=== PATIENT | male | born 1995 | race Caucasian/White ===

== ENCOUNTER 2019-08-27 15:37 | Emergency (ER) | payer OTHER, SELFPAY ==
--- NOTE | ~2019-08-27 | CT_ITS ---
EXAMINATION: CT brain wo con INDICATION: Seizure COMPARISON: 04/18/2017 TECHNIQUE: Standard unenhanced head CT. The dose-length product (DLP) was 605.33 mGy-cm. The mA was a djusted according to patient size. Iterative reconstruction technique was employed. FINDINGS: There is no intracranial hemorrhage, acute infarction, or abnormal mass lesion. The ventric les are normal. There is no abnormal mass effect or midline shift. The hernandez-white matter differentiat ion is normal. The basal cisterns are patent. The orbits are normal. The paranasal sinuses, mastoids and calvarium are normal. IMPRESSION: 1. No acute intracranial abnormality. Reviewed, dictated and finalized at location A.
[2019-08-27 15:45] VITALS: BP 130/81; PULSE 75; RESP 16; TEMP 36.7; O2SAT 98
--- NOTE | 2019-08-27 16:07 | ECG_ITS ---
Measurements Intervals [place] Rate: 71 P: 59 DC: 164 QRS: 22 QRSD: 105 T: 26 QT: 366 QTc: 399 Interpretive Statements SINUS RHYTHM WITH SINUS ARRHYTHMIA VOLTAGE CRITERIA FOR LVH MINIMAL Q WAVES- HIGH LATERAL LEADS BASELINE ARTIFACT- II, III, AVR, AVL,A VF, V3 BORDERLINE ECG Electronically Signed On 08-27-2019 16:40:28 CDT by Hayden Reynolds D.O.
[2019-08-27 16:19] LABS: Hematocrit 46.8 % (40.0-54.0); Hemoglobin 16.1 g/dL (14.0-18.0); Mean Corpuscular HGB Conc 34.4 g/dL (32.0-36.0); Mean Corpuscular Hemoglobin 30.6 pg (27.0-31.0); Mean Corpuscular Volume 88.8 fL (78.0-102.0); Mean Platelet Volume 9.7 fl (8.7-11.0); Platelet Count Result 276 K/mm3 (150-420); Red Blood Count 5.27 M/mm3 (4.70-6.10); Red Cell Distribution Width 11.7 % (11.6-14.4)
[2019-08-27 16:34] VITALS: PULSE 75
[2019-08-27 16:38] LABS: Alanine Aminotransferase 19 U/L (16-63); Albumin Level 4.3 g/dL (3.4-5.0); Alkaline Phosphatase 67 U/L (46-116); Anion Gap 16.4 mmol/L (7-16); Aspartate Amino Transferase 20 U/L (15-37); Bilirubin,Total 0.6 mg/dL (0.00-1.00); Blood Urea Nitrogen 15 mg/dL (7-18); Calcium 10.3 mg/dL (8.5-10.1); Carbon Dioxide 26 mmol/L (21-32); Chloride 105 mmol/L (98-108); Estimated CRCL calculation 47 ml/min; Estimated Glomerular Filt Rate 43; Glucose 95 mg/dL (70-99); Osmolality Calculated 298 mOsm/kg (285-295); Potassium 3.4 mmol/L (3.5-5.1); Sodium 144 mmol/L (136-145); Total Protein 7.9 g/dL (6.4-8.2)
[2019-08-27 16:40] LABS: Creatine Kinase 184 U/L (39-308)
--- NOTE | 2019-08-27 16:48 | ED.SEIZURE ---
HPI - Seizure General Chief Complaint: Seizure Stated Complaint: AMB Source: patient and EMS Mode of arrival: EMS Limitations: no limitations History of Present Illness HPI Narrative: This is a 24-year-old male with a history of seizures follows with neurology and currently on vimpat, Keppra and divalproex, while at work had a seizure event lasting few seconds was witnessed with some no bowel or bladder dysfunction no tongue biting, currently seizure-free was brought in by EMS, with currently no headache no nausea vomiting no blurry vision no chest pain no shortness of breath no abdominal pain no dysuria. Patient has infrequent seizures last 1 approximately 1 year ago and does follow with Neurology. patient is a social drinker but last drink of alcohol was approximately 3 to 4 days ago uses cannabis but has not had any use in the last 2 to weeks. complaint: seizure Onset (ago): hour(s) Description of Episode: loss of consciousness -: second(s) Witnessed: Yes - by Bystander Trauma: No Seizure History: Yes Place: work Possible Precipitating Event: none Associated symptoms: denies other symptoms and weakness Treatments prior to arrival: none Related Data Home Medications Medication Instructions Recorded Confirmed divalproex 250 mg PO BID 01/02/19 08/27/19 lacosamide [Vimpat] 200 mg PO BID 01/02/19 08/27/19 levetiracetam 2,000 mg PO BID 01/02/19 08/27/19 Allergies Allergy/AdvReac Type Severity Reaction Status Date / Time No Known Allergies Allergy Verified 08/27/19 16:11 Review of Systems Review of Systems: All systems reviewed & are unremarkable except as noted in HPI and below PMFSH Past Medical History Medical History Petit mal epilepsy Exam Const: General: no acute distress and alert Orientation/consciousness: patient oriented x3 HENMT: Head: normal to inspection Eyes: Pupils: Equal, round and reactive pupils present Neck: Neck: normal visual inspection Chest: Chest palpation & inspection: normal inspection of the chest Resp: Effort & Inspection: normal respiratory effort Cardio: Rate: regular rate Rhythm: regular rhythm GI: Auscultation: normal bowel sounds : Testes: Testes normal Back/Spine/Pelvis: Back: no CVA tenderness Skin: General skin exam: normal color Rashes: no rashes Neuro: General: patient oriented x3, moves all extremities and no meningeal signs Extrem: General: normal to inspection and no pedal edema Psych: Mental Status: mental status grossly normal Affect: normal affect Thought content: Yes Normal thought content present Course Course Emergency Course: Patient resting comfortably, no current seizure activity did receive 1 mg IV Ativan and IV fluids and currently doing well. Vital Signs Vital signs: Vital Signs Temperature 36.7 C 08/27/19 15:45 Pulse Rate 75 08/27/19 15:45 Respiratory Rate 16 08/27/19 15:45 Blood Pressure 130/81 08/27/19 15:45 Pulse Oximetry 98 08/27/19 15:45 Temperature 36.7 C 08/27/19 15:45 Pulse Rate 75 08/27/19 15:45 Respiratory Rate 16 08/27/19 15:45 Blood Pressure 130/81 08/27/19 15:45 Pulse Oximetry 98 08/27/19 15:45 MDM - Seizure Lab Data Attestation: I reviewed the patient's lab results. Result diagrams: 08/27/19 16:11 08/27/19 16:11 Labs: Lab Results 08/27/19 08/27/19 08/27/19 Range/Units 16:11 16:11 16:11 WBC 12.0 H (4.8-10.8) K/mm3 RBC 5.27 (4.70-6.10) M/mm3 Hgb 16.1 (14.0-18.0) g/dL Hct 46.8 (40.0-54.0) % MCV 88.8 (78.0-102.0) fL MCH 30.6 (27.0-31.0) pg MCHC 34.4 (32.0-36.0) g/dL RDW 11.7 (11.6-14.4) % Plt Count 276 (150-420) K/mm3 MPV 9.7 (8.7-11.0) fl Sodium 144 (136-145) mmol/L Potassium 3.4 L (3.5-5.1) mmol/L Chloride 105 (98-108) mmol/L Carbon Dioxide 26 (21-32) mmol/L Anion Gap 16.4 H (7-16) mmol/L
[2019-08-27 17:09] LABS: Appearance Urine Clear (Clear); Bilirubin Urine 1+ (Negative); Color Urine Amber (Yellow); Glucose Urine UA Negative (Negative); Ketones Urine Trace (Negative); Leukocyte Esterase Ur Negative (Negative); Nitrate Urine Negative (Negative); Protein Urine 2+ (Negative); Specific Grav Ur >= 1.030 (1.010-1.020); pH Urine 6.5 (5.0-8.0)
[2019-08-27 17:12] LABS: Add Urine Microscopic? YES; Blood Urine Trace-Intact (Negative); RBC Urine 0-2 /hpf (0-2); WBC Urine None seen /hpf (0-3)
[2019-08-27 17:13] LABS: Bacteria Urine Trace /hpf; Mucus Urine Moderate /lpf; Squamous Epithelial Cell Urine Few /hpf (Few)
[2019-08-27 17:45] VITALS: BP 128/74; PULSE 68; RESP 16; O2SAT 98
== END 2019-08-27 17:45 | disposition home or self-care (01) ==
PROVIDERS: Emergency Provider Emergency Medicine
DX: G40.409 Other generalized epilepsy and epileptic syndromes, not intractable, without status epilepticus (principal)
CPT/HCPCS: 36415; 70450; 80053; 81001; 82550; 85027; 93005; 96374; 99283; 99284; J2060

== ENCOUNTER 2021-12-18 17:38 | Emergency (ER) | payer OTHER, SELFPAY ==
[2021-12-18] VITALS (26 sets, daily range): BP systolic 106–138; BP diastolic 57–104; PULSE 61–108; RESP 12–26; TEMP 36.6; O2SAT 93–100
--- NOTE | ~2021-12-18 | XR_ITS ---
EXAMINATION: XR chest 1V DATE: 12/18/2021 18:49 INDICATION: Shortness of breath. TECHNIQUE: A single frontal view of the chest was obtained on 2 radiographs. COMPARISON: CT abdomen and pelvis 01/02/2019 FINDINGS: The chest demonstrates clear lungs without pneumonia, pleural effusion, or pneumothorax. Th e heart size is normal. IMPRESSION: 1. No acute cardiopulmonary disease. Reviewed, dictated and finalized at location A. LRY FACER
--- NOTE | ~2021-12-18 | CT_ITS ---
EXAMINATION: CTA chest PE protocol DATE: 12/18/2021 20:18 INDICATION: Shortness of breath. TECHNIQUE: Computed tomography angiography (CTA) of the chest was performed with 100 mL Omnipaque-350 intravenous contrast timed to evaluate the pulmonary arteries. Coronal maximum intensity projection 3D-reconstructions were created by the technologist. Automated exposure control and iterative reconst ruction technique were employed. The dose-length product was 396.17 mGy-cm. COMPARISON: None. FINDINGS: There is minimal atelectasis bilaterally. No pleural effusion. The heart size is normal. No pericardial effusion. There is no pulmonary embolus. There is mild atrophy of left kidney. There is mild chronic anterior wedging of multiple vertebral bodies. There is dextroscoliosis of upper thoraci c spine and levoscoliosis of lower thoracic spine. 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 IMPRESSION: 1. No pulmonary embolus. Reviewed, dictated and finalized at location A. E KID BUFFER IMPRESSION: 1. No pulmonary embolus.
--- NOTE | ~2021-12-18 | CT_ITS ---
EXAMINATION: CT brain wo con DATE: 12/18/2021 18:49 INDICATION: Tremors. History of seizures. TECHNIQUE: Computed tomography (CT) of the head was performed without intravenous contrast. The mA wa s adjusted according to patient size. Iterative reconstruction technique was employed. Exam dose: 52 9.67 mGy-cm total exam DLP. COMPARISON: 08/27/2019 CT brain 04/18/2017 CT head FINDINGS: Examination is mildly limited by motion artifact. No intracranial mass lesion or hemorrhage or cerebrovascular accident. No midline shift or mass effect. Normal ventricular size. No subdural or epidural hematoma. No fracture or bone destruction of the cranial vault. Included paranasal sinuses and mastoid air cell s are normally developed and aerated. IMPRESSION: No significant abnormality Reviewed, dictated and finalized at Location A. Reviewed, dictated and finalized at location A. SION FIELD INSPECTOR IMPRESSION: No significant abnormality
--- NOTE | 2021-12-18 18:04 | ECG_ITS ---
Measurements Intervals [place] Rate: 90 P: 55 OR: 151 QRS: 17 QRSD: 101 T: 54 QT: 355 QTc: 436 Interpretive Statements SINUS RHYTHM MINIMAL Q WAVES- HIGH LATERAL LEADS BASELINE ARTIFACT- I, II, III, AVR, AVL, AVF BORDERLINE ECG COMPARED TO ECG 08/27/2019 16:16:04 NO SIGNIFICANT CHANGES Electronically Signed On 12-19-2021 7:04:37 RUBBER STAMPS AND DIES SUPERVISOR by Hayden Reynolds D.O.
[2021-12-18 18:19] LABS: Basophils Absolute Auto 0.03 K/mm3 (0.00-0.10); Basophils Percent Auto 0.2 % (0.0-1.0); Eosinophils Absolute Auto 0.04 K/mm3 (0.02-0.50); Eosinophils Percent Auto 0.3 % (1.0-6.0); Hematocrit 43.2 % (40.0-54.0); Hemoglobin 14.8 g/dL (14.0-18.0); Immature Granulocyte Absolute 0.04 K/mm3 (0.00-0.00); Immature Granulocyte Percent A 0.3 % (0.0-0.0); Lymphocytes Percent Auto 15.2 % (18.0-42.0); Mean Corpuscular HGB Conc 34.3 g/dL (32.0-36.0); Mean Corpuscular Volume 90.6 fL (78.0-102.0); Mean Platelet Volume 9.3 fl (8.7-11.0); Monocytes Absolute Auto 0.79 K/mm3 (0.10-0.90); Monocytes Percent Auto 5.7 % (2.0-11.0); Neutrophils Absolute Auto 10.9 K/mm3 (1.7-7.2); Neutrophils Percent Auto 78.3 % (50.0-70.0); Platelet Count Result 250 K/mm3 (150-420); Red Blood Count 4.77 M/mm3 (4.70-6.10); Red Cell Distribution Width 12.1 % (11.6-14.4); White Blood Count 13.9 K/mm3 (4.8-10.8)
[2021-12-18 18:37] LABS: Alanine Aminotransferase 14 U/L (16-63); Albumin Level 3.9 g/dL (3.4-5.0); Alkaline Phosphatase 62 U/L (46-116); Anion Gap 13 mmol/L (8-16); Aspartate Amino Transferase 15 U/L (15-37); Bilirubin,Total 0.6 mg/dL (0.00-1.00); Blood Urea Nitrogen 24 mg/dL (7-18); Calcium 9.4 mg/dL (8.5-10.1); Carbon Dioxide 24 mmol/L (21-32); Chloride 102 mmol/L (98-108); Estimated CRCL calculation 48 ml/min; Estimated Glomerular Filt Rate 40; Glucose 89 mg/dL (70-99); Lactic Acid Reflex 1.1 mmol/L (0.4-2.0); Magnesium 1.6 mg/dL (1.8-2.4); Osmolality Calculated 291 mOsm/kg (285-295); Potassium 3.5 mmol/L (3.5-5.1); Sodium 139 mmol/L (136-145); Total Protein 7.5 g/dL (6.4-8.2)
[2021-12-18 18:44] LABS: Ethanol < 3 mg/dL (0-6)
[2021-12-18] MEDS: SODIUM CHLORIDE 0.9% IV 1,000 ML 999 ML IV CONT ×2 (18:45→19:44)
--- NOTE | 2021-12-18 19:02 | PC.NURSE ---
PT HAS RETURNED FROM CT, FATHER IS IN THE CAR. PT STATES I JUST WANT TO MAKE SURE I AM NOT OVERDOSING. PT STATES THE LAST TIME HE USED METH WAS 2 WEEKS AGO. PT IS AWAITING RESULTS AT THIS TIME. IVF INFUSING ORDERED WITHOUT DIFFICULTY. WILL CONTINUE TO MONITOR.
--- NOTE | 2021-12-18 19:25 | ED.GENADULT ---
HPI - General Adult General Chief complaint: Anxiety Stated complaint: anxiety attack Time Seen by Provider: 12/18/21 17:40 Source: patient and RN notes reviewed Mode of arrival: ambulatory Limitations: no limitations History of Present Illness MD complaint: mild chest pain and heart palpitations. Onset (ago): hour(s) (6) Location: chest Radiation: non-radiation Severity: mild Severity scale (1-10): 3 Quality: aching Pain Consistency: constant Relieving factors: none Exacerbating factors: none Associated symptoms: denies other symptoms Related Data Home Medications Medication Instructions Recorded Confirmed divalproex 500 mg tablet,delayed 250 mg PO BID 01/02/19 12/18/21 release lacosamide 200 mg tablet (Vimpat) 200 mg PO BID 01/02/19 12/18/21 levetiracetam 1,000 mg tablet 2,000 mg PO USEASDIRECTD 01/02/19 12/18/21 Allergies Allergy/AdvReac Type Severity Reaction Status Date / Time No Known Allergies Allergy Verified 12/18/21 18:04 Review of Systems Review of Systems: All systems reviewed & are unremarkable except as noted in HPI and below Constitutional: Constitutional: Reports no additional constitutional complaints Eyes: Eyes: Reports no additional eye complaints ENT: Reports system reviewed and no additional complaints, except as documented Cardiovascular: Cardiovascular: Reports no additional cardiovascular complaints, Reports chest pain and Reports rapid heart rate Respiratory: Respiratory: Reports no additional respiratory complaints Gastrointestinal: Gastrointestinal: Reports no additional gastrointestinal complaints Musculoskeletal: Musculoskeletal: Reports no additional musculoskeletal complaints Integumentary/Breasts: Skin/Breast: Reports system reviewed and no additional complaints, except as docu Neurologic: Reports system reviewed and no additional complaints, except as documented Psychiatric: Psychiatric: Reports no additional psychiatric complaints Endocrine: Endocrine: Reports no additional endocrine complaints Hematologic/Lymphatic: Hematologic/Lymphatic: Reports no additional hematologic/lymphatic complaints Allergic/Immunologic: Allergic/Immunologic: Reports no additional allergic/immunologic complaints PMFSH Past Medical History Medical History (Updated 12/25/21 @ 11:08 by Mary Ellen Rock MD) Asthma Hypomagnesemia Petit mal epilepsy Social History Social History Substance use type: marijuana and amphetamines Exam Const: General: healthy appearing, no acute distress and well nourished Nutritional Appearance: well nourished Orientation/consciousness: patient oriented x3 Limitations: no limitations HENMT: Head: normal to inspection Ears: external ears normal, TM's normal bilaterally and EAC's normal Face/Nose/Sinus: Normal external nose present, Normal nares present, normal facial exam and sinuses nontender Face and sinus: normal facial exam and sinuses nontender Mouth: Yes Normal oral and palatal mucosa present and Yes moist mucous membranes Teeth and gingiva: dentition normal Throat: posterior oropharynx normal Eyes: Conjunctivae: conjunctivae normal Pupils: Equal, round and reactive pupils present EOM: EOMs intact bilaterally Neck: Neck: normal visual inspection, no lymphadenopathy and no meningeal signs Chest: Other: chest pain, Resp: Effort & Inspection: normal respiratory effort Auscultation: clear to auscultation bilaterally, rhonchi and wheezes Cardio: Rate: tachycardic Rhythm: regular rhythm GI: GI Palp: Yes Soft to palpation and No Tenderness to palpation present (GI) Auscultation: normal bowel sounds : General: Yes bladder normal to palpation and Yes no CVA tenderness Back/Spine/Pelvis: Back: no CVA tenderness Skin: General skin exam: normal color Rashes: no rashes Wounds: no wounds Neuro: General: patient oriented x3, moves all extremities, no meningeal signs, no f
--- NOTE | 2021-12-18 19:34 | ECG_ITS ---
Measurements Intervals [place] Rate: 65 P: 37 VA: 153 QRS: 20 QRSD: 101 T: 20 QT: 403 QTc: 420 Interpretive Statements SINUS RHYTHM POSSIBLE LEFT ATRIAL ENLARGEMENT MINIMAL Q WAVES- HIGH LATERAL LEADS BASELINE ARTIFACT- I, II, III, V3, V5 BORDERLINE ECG COMPARED TO ECG 12/18/2021 18:52:50 NO SIGNIFICANT CHANGES Electronically Signed On 12-19-2021 7:06:22 NETWORK OPERATIONS LEAD by Hayden Reynolds D.O.
[2021-12-18] MEDS: MAGNESIUM OXIDE 400 MG TABLET PO (19:41)
[2021-12-18] MEDS: methylPREDNISolone SOD SUCC 125 MG VIAL IV PUSH (19:44)
--- NOTE | 2021-12-18 19:47 | PC.NURSE ---
pt calls out reporting something is not right. pt is anxious, diaphoretic, hyperventilating. coached with breathing, however pt reports no change in the feeling. pt is tearful. erp is notified, medication and fluids given as ordered. ERP declines any anxiety medication at this tme. pt reports sob and difficulty breathing with a feeling of something just is not right. ERP is aware, no orders at this time. will continue to monitor.
[2021-12-18 19:51] LABS: Base Excess ABG 0.5 mmol/L (0-2); HCO3 ABG 18.7 mmol/L (23-29); PO2 ABG 69.6 mmHg (80-90); pH ABG 7.63 (7.35-7.45)
[2021-12-18 20:01] LABS: PCO2 ABG 18.1 mmHg (35-45)
[2021-12-18 20:02] LABS: Device ROOM AIR; Modified Allen's Test Pass; Site Drawn LEFT RADIAL
[2021-12-18] MEDS: IPRATROPIUM 0.5 MG/ALBUTEROL SULFATE 2.5 MG AMPUL.NEB 3 ML INHALATION (20:10)
[2021-12-18 20:12] LABS: Oxygen Saturation ABG 96.1 % (95-97); Oxyhemoglobin 94.9 % (94-100); Total Hemoglobin 15.8 g/dL (12.0-18.0)
[2021-12-18 20:13] LABS: Oxygen Content ABG 21.1 %vol (16.0-22.0)
--- NOTE | 2021-12-18 20:38 | PC.NURSE ---
PT RETURNED FROM CT, REPORTS HE IS FEELING MUCH BETTER, SKIN W-D-P. NAD NOTED. VSS PER MONITOR. WILL CONTINUE TO MONITOR. FATHER AT BEDSIDE.
--- NOTE | 2021-12-18 21:38 | PC.NURSE ---
PT IS SLEEPING IN EXAM ROOM WITH FATHER AT BEDSIDE. PT DECLINES ADMISSION. PT REPORTS HE WILL RETURN IF SX RETURN. FATHER VERBALIZED UNDERSTANDING OF PT REQUEST AND TO BRING PT BACK IF SX RETURN. ERP IS NOTIFIED.
== END 2021-12-18 21:55 | disposition home or self-care (01) ==
PROVIDERS: Emergency Provider Emergency Medicine
DX: E83.42 Hypomagnesemia (principal); T67.2XXA Heat cramp, initial encounter; J45.909 Unspecified asthma, uncomplicated
CPT/HCPCS: 36415; 36600; 70450; 71045; 71275; 80053; 80307; 82805; 83605; 83735; 84484; 85025; 93005; 94640; 96361; 96374; 99284; A9270; J2930; J7030; Q9967

== ENCOUNTER 2022-07-06 19:21 | Observation (INO) | payer SELFPAY ==
[2022-07-06] VITALS (13 sets, daily range): BP systolic 124–136; BP diastolic 74–86; PULSE 78–118; RESP 16–30; TEMP 36.4–37.1; O2SAT 96–100; BMI 23.1
--- NOTE | ~2022-07-06 | XR_ITS ---
EXAMINATION: XR chest 1V portable Exam Date/Time: 07/06/2022 20:25 CDT HISTORY: leukocytosis. evaluate for pneumonia. Comparison: 12/18/2021. RESULT: Lines, tubes, and devices: None. Lungs and pleura: Clear. Cardiomediastinal silhouette: Stable. Other: No acute osseous or upper abdominal finding. IMPRESSION: No acute cardiopulmonary process. Reviewed, dictated and finalized at location K.
--- NOTE | 2022-07-06 19:22 | ED.GENADULT ---
HPI - General Adult General Chief complaint: Seizure Stated complaint: Seizure Time Seen by Provider: 07/06/22 19:22 History of Present Illness HPI narrative: The patient is a 26-year-old male with a long history of seizure disorder, for several years. He is on Vimpat, Keppra, and Depakote antiepileptic medications. He has been taking his medications and has not missed doses, for at least several weeks per his report. The patient was drinking alcohol last night, and uses marijuana. He had one seizure yesterday, and two more seizures today. He did not bite his lips/tongue. He did lose control of his bladder and bowels. He did not strike his head. he denies any headache. Did have nausea and vomiting earlier but not now. Denies any motor sensory deficits. EMS was notified, IV access was established and IV fluids were given due to sinus tachycardia on the monitor. per EMS, he was postictal initially, and then had return of his normal mental status during transport here. He was nauseated so Zofran was given. He was transported here for further management. He denies any other complaints. No photophobia or blurred vision. No neck pain or back pain. No arm or leg pain. No chest pain or abdominal pain. No UTI or URI symptoms. Denies drug use. Related Data Home Medications Medication Instructions Recorded Confirmed divalproex 500 mg tablet,delayed 250 mg PO BID 01/02/19 07/06/22 release lacosamide 200 mg tablet (Vimpat) 200 mg PO BID 01/02/19 07/06/22 levetiracetam 1,000 mg tablet 2,000 mg PO USEASDIRECTD 01/02/19 07/06/22 Allergies Allergy/AdvReac Type Severity Reaction Status Date / Time No Known Allergies Allergy Verified 12/18/21 18:04 Review of Systems Review of Systems: All systems reviewed & are unremarkable except as noted in HPI and below Constitutional: Constitutional: Denies chills, Denies excessive sweating, Denies fatigue, Denies fever(s), Denies headache(s) and Denies weakness Eyes: Eyes: Denies change in vision and Denies photophobia ENT: Denies dysphagia, Denies dizziness, Denies headache(s), Denies lip swelling, Denies nasal congestion, Denies sore throat and Denies tongue swelling Cardiovascular: Cardiovascular: Denies chest pain, Denies syncope, Denies rapid heart rate and Denies dyspnea Respiratory: Respiratory: Denies cough, Denies dyspnea and Denies wheezing Gastrointestinal: Gastrointestinal: Denies abdominal pain, Denies constipation, Denies dysphagia, Denies diarrhea, Reports nausea and Denies vomiting Genitourinary: Genitourinary: Denies hematuria, Denies dysuria, Denies urinary frequency and Denies urinary urgency Musculoskeletal: Musculoskeletal: Denies back pain, Denies myalgias, Denies arthralgias, Denies joint swelling and Denies numbness Integumentary/Breasts: Skin/Breast: Denies pruritus, Denies erythema and Denies rash Neurologic: Denies confusion, Denies dizziness, Denies syncope, Denies headache(s), Denies focal weakness, Denies numbness and Denies weakness Comments: Positive for seizures Psychiatric: Psychiatric: Denies anxiety and Denies confusion Endocrine: Endocrine: Denies excessive sweating and Denies fatigue Hematologic/Lymphatic: Hematologic/Lymphatic: Denies easy bleeding and Denies easy bruising Allergic/Immunologic: Allergic/Immunologic: Denies lip swelling, Denies tongue swelling and Denies wheezing PMFSH Past Medical History Medical History Asthma Hypomagnesemia Petit mal epilepsy Family History Family History (Updated 07/06/22 @ 22:10 by Kenyetta Childress RN) Mother Seizure Social History Social History Alcohol intake: current Drinks per week: 5 Substance use: current Substance use type: marijuana Lack of Transportation: No Lack of Food: Sometimes True Current Housing: I Have Housing Concerned About Future Housing: No
[2022-07-06] MEDS: SODIUM CHLORIDE 0.9% IVPB (19:33)
[2022-07-06] MEDS: LEVETIRACETAM IVPB (19:33)
[2022-07-06 19:36] LABS: Hematocrit 44.2 % (40.0-54.0); Hemoglobin 15.3 g/dL (14.0-18.0); Mean Corpuscular HGB Conc 34.6 g/dL (32.0-36.0); Mean Corpuscular Hemoglobin 30.1 pg (27.0-31.0); Mean Platelet Volume 9.6 fl (8.7-11.0); Platelet Count Result 299 K/mm3 (150-420); Red Blood Count 5.08 M/mm3 (4.70-6.10); Red Cell Distribution Width 12.8 % (11.6-14.4)
[2022-07-06] MEDS: SODIUM CHLORIDE 0.9% IV 1,000 ML 999 ML IV CONT ×2 (19:39→20:40)
[2022-07-06 19:40] LABS: White Blood Count 23.8 K/mm3 (4.8-10.8)
[2022-07-06 19:51] LABS: Alanine Aminotransferase 16 U/L (16-63); Albumin Level 4.1 g/dL (3.4-5.0); Alkaline Phosphatase 77 U/L (46-116); Amylase 154 U/L (25-115); Anion Gap 14 mmol/L (8-16); Aspartate Amino Transferase 24 U/L (15-37); Bilirubin,Total 0.7 mg/dL (0.00-1.00); Blood Urea Nitrogen 28 mg/dL (7-18); Calcium 9.4 mg/dL (8.5-10.1); Carbon Dioxide 23 mmol/L (21-32); Chloride 101 mmol/L (98-108); Creatine Kinase 331 U/L (39-308); Estimated CRCL calculation 37 ml/min; Estimated Glomerular Filt Rate 30; Ethanol < 3 mg/dL (0-6); Glucose 110 mg/dL (70-99); Lipase 43 U/L (16-77); Magnesium 2.2 mg/dL (1.8-2.4); Osmolality Calculated 292 mOsm/kg (285-295); Potassium 4.5 mmol/L (3.5-5.1); Sodium 138 mmol/L (136-145); Total Protein 7.4 g/dL (6.4-8.2)
[2022-07-06 19:56] LABS: Band Neutrophils Percent 0 % (0-6); Basophils Percent Manual 0 % (0-1); Eosinophils Percent Manual 0 % (1-6); Lymphocytes Absolute Manual 0.95 K/mm3 (1.1-4.5); Lymphocytes Percent Manual 4 % (18-44); Monocytes Absolute Manual 0.47 K/mm3 (0.1-0.90); Monocytes Percent Manual 2 % (3-9); Neutrophils Absolute Manual 22.37 K/mm3 (1.3-6.7); Neutrophils Percent Manual 94 % (46-73); Platelet Estimate Adequate (Adequate); Total Cells Counted 100
[2022-07-06 19:58] LABS: Lactic Acid Reflex 3.2 mmol/L (0.4-2.0)
[2022-07-06 20:43] LABS: CRP 0.9 mg/dL (0.0-0.9)
[2022-07-06] MEDS: cefTRIAXone 2 GM/NS 100 ML 2 GM/100 ML BAG IVPB (20:56)
[2022-07-06 21:26] LABS: Influenza A QL RT-PCR Negative (Negative); Influenza B QL RT-PCR Negative (Negative); RSV RNA, RT-PCR Negative (Negative); SARS-CoV-2 RNA PCR Negative (Negative); Strep Group A RT-PCR NOT DETECTED (Negative)
[2022-07-06 21:37] LABS: Erythrocyte Sedimentation Rate 4 mm/hr (0-15)
--- NOTE | 2022-07-06 22:07 | ADMGEN ---
This patient, Mio Pritchard, was admitted to 2nd Floor Room 203-2. Patient/family oriented to hospital policies and general routines including ID bracelet, bed and alarms, visiting hours, pain management, procedures, bathroom and other care routines, personal items, smoking policy, room service/diet, and visiting hours. Information on how to activate the Rapid Response Team has been discussed. Patient/Family are encouraged to report perceived risks to care and to ask questions if they do not understand what they are told or what they should do.
[2022-07-06] MEDS: SODIUM CHLORIDE 0.9% IV 1,000 ML 125 ML IV CONT (22:23)
[2022-07-06 23:00] LABS: Reflex Lactic Acid Yes or No Add Lactic
[2022-07-06 23:42] LABS: Lactic Acid 0.6 mmol/L (0.4-2.0)
[2022-07-07 05:32] LABS: Hematocrit 38.6 % (40.0-54.0); Hemoglobin 12.7 g/dL (14.0-18.0); Mean Corpuscular HGB Conc 32.9 g/dL (32.0-36.0); Mean Corpuscular Hemoglobin 29.5 pg (27.0-31.0); Mean Corpuscular Volume 89.6 fL (78.0-102.0); Mean Platelet Volume 10.3 fl (8.7-11.0); Platelet Count Result 244 K/mm3 (150-420); Red Blood Count 4.31 M/mm3 (4.70-6.10); Red Cell Distribution Width 13.1 % (11.6-14.4); White Blood Count 14.1 K/mm3 (4.8-10.8)
[2022-07-07 05:45] LABS: Anion Gap 9 mmol/L (8-16); Blood Urea Nitrogen 25 mg/dL (7-18); Calcium 8.2 mg/dL (8.5-10.1); Carbon Dioxide 24 mmol/L (21-32); Chloride 107 mmol/L (98-108); Estimated CRCL calculation 48 ml/min; Estimated Glomerular Filt Rate 41; Glucose 83 mg/dL (70-99); Osmolality Calculated 293 mOsm/kg (285-295); Potassium 4.5 mmol/L (3.5-5.1); Sodium 140 mmol/L (136-145)
[2022-07-07 08:00] VITALS: BP 124/80; PULSE 83; RESP 18; TEMP 36.2; O2SAT 99
[2022-07-07 08:18] LABS: Appearance Urine Clear (Clear); Bilirubin Urine Negative (Negative); Blood Urine Negative (Negative); Color Urine Light Yellow (Yellow); Glucose Urine UA Negative (Negative); Ketones Urine Trace (Negative); Leukocyte Esterase Ur Negative LEU/UL (Negative); Nitrate Urine Negative (Negative); Protein Urine Negative (Negative); Specific Grav Ur 1.025 (1.010-1.020); Urobilinogen Urine 0.2 mg/dL (0.2-1.0)
--- NOTE | 2022-07-07 08:25 | PM.SD2 ---
Same Day Admit/Disch: HPI History of Present Illness Chief complaint: ACUTE KIDNEY INJURY Narrative: Mio Pritchard is a 26 year old male that presented to our emergency department status post seizures. Patient has a past medical history of asthma, tami, and petit mal epilepsy. according to patient's he has several seizures yesterday. Patient notes that he did consume alcohol which usually triggers seizure activity for him. He has not experienced any seizure activity since his admission. He does see a neurologist at [facility] Dr. Patel and has an appointment with him in August. Patient does not have a primary care physician we have set up an appointment for him with Dr. garcía to monitor his renal function. on admission patient was tachycardic with tachypnea patient's wbc's was 23.8 creatinine 2.63 BUN 28 lactic acid 3.2 UA a trace of ketone positive for amphetamines and cannabis chest x-ray unremarkable. patient admitted for dehydration, acute kidney injury and seizure activity. The patient denies SOB, CP, palpitation, extremity numbness, lightheadedness, dizziness, constipation, diarrhea, chills, or fever. Patient does not have a primary care physician we have made an appointment with a primary care physician to monitor his kidney function will have a repeat renal function test before his appointment. He was instructed to follow with his neurologist. Patient agrees he is ready for discharge PMFSH Past Medical History Medical History Asthma Hypomagnesemia Petit mal epilepsy Family History Family History (Updated 07/06/22 @ 22:10 by Kenyetta Childress RN) Mother Seizure Social History Social History Smoking packs per day: 1 Smoking cigarettes per day: 20.0 Years smoked: 11 Smoking pack-years: 11.00 Smoking status: Current every day smoker Tobacco type: cigarettes Second hand tobacco smoke exposure: No Alcohol intake: current Drinks per week: 5 Substance use: current Substance use type: marijuana Lack of Transportation: No Lack of Food: Sometimes True Current Housing: I Have Housing Concerned About Future Housing: No Difficulty Paying Gas/Electric Bills: No Difficulty Paying for Meds: No Currently Unemployed: YES Education: High School Diploma/GED Difficulty w/ Childcare or Family Care: No Spiritual care concerns: No Same Day Admit/Disch: Med Pre-admit Medications Home Medications Medication Instructions Recorded Confirmed Type divalproex 500 mg tablet,delayed 250 mg PO BID 01/02/19 07/06/22 History release lacosamide 200 mg tablet (Vimpat) 200 mg PO BID 01/02/19 07/06/22 History levetiracetam 1,000 mg tablet 2,000 mg PO USEASDIRECTD 01/02/19 07/06/22 History albuterol sulfate 90 mcg/actuation 2 puff inhalation QID #8.5 grams 12/18/21 07/06/22 Rx aerosol inhaler (Ventolin HFA) magnesium 200 mg tablet 400 mg PO DAILY 10 days #20 tabs 12/18/21 07/06/22 Rx methylprednisolone 4 mg tablets in See Rx Instructions PO .COMPLEX 12/18/21 07/06/22 Rx a dose pack (Medrol (Sergio)) #21 ea Exam Narrative: GENERAL: This is a well-nourished, well-developed patient, in no apparent distress. HEAD: normocephalic, atraumatic. EYES: PERRL. Sclera clear/white. Vision is grossly intact. EARS: External ears normal, auditory canals clear and without drainage, TMs normal without perforation. Hearing grossly intact. NOSE: External nose normal with no obvious nasal discharge, nares without redness, no rhinorrhea. THROAT: Mucous membranes moist, posterior pharynx clear. NECK: Neck supple, non-tender without lymphadenopathy, masses or thyromegaly. CARDIOVASCULAR: Regular rate and rhythm without murmurs, gallops, or rubs. RESPIRATORY: Clear to auscultation. Breath sounds equal bilaterally. No wheezes, rales, or rhonchi. GASTROINTESTINAL: Abdomen soft, non-tender, nondistended.
[2022-07-07 08:26] LABS: Add Urine Microscopic? YES; Amphetamine Screen Urine Positive (Negative); Barbiturate Screen Urine Negative (Negative); Benzodiazepines Screen Urine Negative (Negative); Cannabinoid Screen Urine Positive (Negative); Cocaine Screen Urine Negative (Negative); Methadone Screen Urine Negative (Negative); Opiate Screen Urine Negative (Negative); Phencyclidine Screen Urine Negative (Negative); RBC Urine None seen /hpf (0-2); Squamous Epithelial Cell Urine Few /hpf (Few); WBC Urine 0-3 /hpf (0-3)
[2022-07-07 08:27] LABS: Bacteria Urine Trace /hpf
[2022-07-07] MEDS: MAGNESIUM OXIDE 400 MG TABLET PO (09:38)
[2022-07-07] MEDS: levETIRAcetam 500 MG TABLET 2000 MG PO (09:38)
[2022-07-07] MEDS: DIVALPROEX SODIUM DR 250 MG TABEC PO (09:38)
[2022-07-07] MEDS: LACOSAMIDE (*CRX) 50 MG TABLET 200 MG PO (09:38)
--- NOTE | 2022-07-07 11:44 | PC.NURSE ---
Discharge instructions reviewed with patient. All questions answered. Pt's dad contacted via telephone for transportation. Father confirmed pharmacy for [facility]. Pt currently sitting at bedside awaiting ride.
[2022-07-11 15:50] LABS: Valproic Acid 4.9 mg/L (50.0-100.0)
--- NOTE | 2022-07-13 13:19 | PC.NURSE ---
Pt states he received and understood the discharge instructions. Pt has no other comments.
== END 2022-07-07 12:00 | disposition home or self-care (01) ==
LOC: CHSED 19:53 → CHS2ND 21:18
PROVIDERS: Nurse Practitioner Family; Admitting Provider Internal Medicine; Emergency Provider Emergency Medicine; Visit Provider Internal Medicine
DX: G40.909 Epilepsy, unspecified, not intractable, without status epilepticus (principal); G40.A09 Absence epileptic syndrome, not intractable, without status epilepticus; N17.9 Acute kidney failure, unspecified; J45.909 Unspecified asthma, uncomplicated; E83.42 Hypomagnesemia; R82.5 Elevated urine levels of drugs, medicaments and biological substances; F17.210 Nicotine dependence, cigarettes, uncomplicated
CPT/HCPCS: 36415; 71045; 80048; 80053; 80164; 80307; 81001; 82150; 82550; 83605; 83690; 83735; 85025; 85027; 85652; 86140; 87040; 87637; 87651; 96360; 96361; 96365; 96367; 99285; A9270; G0378; J0696; J1953; J7030

== ENCOUNTER 2022-07-14 13:39 | Emergency (ER) | payer OTHER, SELFPAY ==
[2022-07-14 13:39] VITALS: BP 121/73; PULSE 94; RESP 14; TEMP 36.2; O2SAT 97
[2022-07-14 14:03] VITALS: BP 121/73; PULSE 94; RESP 14; TEMP 36.2; O2SAT 97
--- NOTE | 2022-07-14 14:25 | ED.GENADULT ---
HPI - General Adult General Chief complaint: Skin/Abscess/Foreign Body Stated complaint: spider bite Time Seen by Provider: 07/14/22 14:11 History of Present Illness HPI narrative: The patient is a 26-year-old male with history of epilepsy, on antiepileptic medications, asthma, and acute kidney injury. He was seen here on 07/07/2022 by me after a seizure. Although he had been taking his seizure medications, his valproic acid, which was a send out test, was low. He was admitted for 23 hours with a seizure. [place] [id number] which the next day improved to 14,000 thousand, his acute kidney injury with BUN of 28 and a creatinine of 2.6 improved to a BUN of 25 and a creatinine of 2 point over the next day. He was advised to follow-up with primary care provider an appointment was made for him. He has not seen a primary care provider yet. He, at the time of discharge, was placed on cefdinir 300 mg daily for 7 days given the leukocytosis. No source of infection was noted. He now returns 2-3 to 4 day history of an insect bite on the medial aspect of the right calf associated with pruritus. The father says that it is getting slightly bigger. There is erythema at the site. He continues to take his cefdinir and has 2 more days to go. No other insect bites anywhere else. No other complaints. No recurrent seizures. Related Data Home Medications Medication Instructions Recorded Confirmed divalproex 500 mg tablet,delayed 250 mg PO BID 01/02/19 07/14/22 release lacosamide 200 mg tablet (Vimpat) 200 mg PO BID 01/02/19 07/14/22 levetiracetam 1,000 mg tablet 2,000 mg PO USEASDIRECTD 01/02/19 07/14/22 Allergies Allergy/AdvReac Type Severity Reaction Status Date / Time No Known Allergies Allergy Verified 07/14/22 13:59 Review of Systems Review of Systems: All systems reviewed & are unremarkable except as noted in HPI and below Constitutional: Constitutional: Denies chills, Denies excessive sweating, Denies fatigue, Denies fever(s), Denies headache(s) and Denies weakness Eyes: Eyes: Denies change in vision and Denies photophobia ENT: Denies dysphagia, Denies dizziness, Denies headache(s), Denies lip swelling, Denies nasal congestion, Denies sore throat and Denies tongue swelling Cardiovascular: Cardiovascular: Denies chest pain, Denies syncope, Denies rapid heart rate and Denies dyspnea Respiratory: Respiratory: Denies cough, Denies dyspnea and Denies wheezing Gastrointestinal: Gastrointestinal: Denies abdominal pain, Denies constipation, Denies dysphagia, Denies diarrhea, Denies nausea and Denies vomiting Genitourinary: Genitourinary: Denies hematuria, Denies dysuria, Denies urinary frequency and Denies urinary urgency Musculoskeletal: Musculoskeletal: Denies back pain, Denies myalgias, Denies arthralgias, Denies joint swelling and Denies numbness Integumentary/Breasts: Skin/Breast: Reports pruritus, Reports erythema and Reports rash Comments: Neurologic: Denies confusion, Denies dizziness, Denies syncope, Denies headache(s), Denies focal weakness, Denies numbness and Denies weakness Psychiatric: Psychiatric: Denies anxiety and Denies confusion Endocrine: Endocrine: Denies excessive sweating and Denies fatigue Hematologic/Lymphatic: Hematologic/Lymphatic: Denies easy bleeding and Denies easy bruising Allergic/Immunologic: Allergic/Immunologic: Denies lip swelling, Denies tongue swelling and Denies wheezing PMFSH Past Medical History Medical History Asthma Hypomagnesemia Petit mal epilepsy Family History Family History Mother Seizure Social History Social History Smoking packs per day: 1 Smoking cigarettes per day: 20.0 Years smoked: 11 Smoking pack-years: 11.00 Smoking status: Current every day smoker Tobac
[2022-07-14] MEDS: SULFAMETHOXAZOLE/TRIMETHOPRIM 800/160 MG DS TABLET 1 TAB PO (14:33)
== END 2022-07-14 14:45 | disposition home or self-care (01) ==
LOC: CHSED 14:41
PROVIDERS: Emergency Provider Emergency Medicine
DX: S80.861A Insect bite (nonvenomous), right lower leg, initial encounter (principal); G40.909 Epilepsy, unspecified, not intractable, without status epilepticus; J45.909 Unspecified asthma, uncomplicated; F17.210 Nicotine dependence, cigarettes, uncomplicated; W57.XXXA Bitten or stung by nonvenomous insect and other nonvenomous arthropods, initial encounter
CPT/HCPCS: 99283; A9270

== ENCOUNTER 2022-08-06 14:44 | Outpatient (CLI) | payer OTHER, SELFPAY ==
[2022-08-06 14:56] LABS: Basophils Absolute Auto 0.05 K/mm3 (0.00-0.10); Basophils Percent Auto 0.6 % (0.0-1.0); Eosinophils Absolute Auto 0.12 K/mm3 (0.02-0.50); Eosinophils Percent Auto 1.4 % (1.0-6.0); Hematocrit 49.6 % (40.0-54.0); Hemoglobin 16.7 g/dL (14.0-18.0); Immature Granulocyte Absolute 0.01 K/mm3 (0.00-0.00); Immature Granulocyte Percent A 0.1 % (0.0-0.0); Lymphocytes Absolute Auto 3.47 K/mm3 (1.10-4.50); Lymphocytes Percent Auto 41.3 % (18.0-42.0); Mean Corpuscular HGB Conc 33.7 g/dL (32.0-36.0); Mean Corpuscular Hemoglobin 30.3 pg (27.0-31.0); Mean Platelet Volume 9.8 fl (8.7-11.0); Monocytes Absolute Auto 0.48 K/mm3 (0.10-0.90); Monocytes Percent Auto 5.7 % (2.0-11.0); Neutrophils Absolute Auto 4.3 K/mm3 (1.7-7.2); Neutrophils Percent Auto 50.9 % (50.0-70.0); Platelet Count Result 297 K/mm3 (150-420); Red Blood Count 5.51 M/mm3 (4.70-6.10); Red Cell Distribution Width 12.7 % (11.6-14.4); White Blood Count 8.4 K/mm3 (4.8-10.8)
[2022-08-06 15:28] LABS: Alanine Aminotransferase 16 U/L (16-63); Albumin Level 4.3 g/dL (3.4-5.0); Alkaline Phosphatase 65 U/L (46-116); Anion Gap 10 mmol/L (8-16); Aspartate Amino Transferase 10 U/L (15-37); Bilirubin,Total 0.5 mg/dL (0.00-1.00); Blood Urea Nitrogen 26 mg/dL (7-18); Calcium 9.7 mg/dL (8.5-10.1); Carbon Dioxide 28 mmol/L (21-32); Chloride 103 mmol/L (98-108); Estimated Glomerular Filt Rate 47; Glucose 84 mg/dL (70-99); Osmolality Calculated 295 mOsm/kg (285-295); Potassium 4.6 mmol/L (3.5-5.1); Sodium 141 mmol/L (136-145); Total Protein 7.8 g/dL (6.4-8.2)
== END 2022-08-06 14:45 | disposition home or self-care (01) ==
LOC: CHSLAB 14:45
PROVIDERS: PCP Family Medicine; Visit Provider Family Medicine
DX: N18.9 Chronic kidney disease, unspecified (principal); N17.9 Acute kidney failure, unspecified
CPT/HCPCS: 36415; 80053; 85025

== ENCOUNTER 2022-12-01 12:31 | Outpatient (CLI) | payer OTHER, SELFPAY ==
--- NOTE | ~2022-12-01 | US_ITS ---
US renal BI 12/01/2022 12:59 Procedure: Realtime transabdominal ultrasound of the kidneys and bladder. Indication: Chronic kidney disease Comparison: No prior studies for comparison. Findings: Renal echotexture is normal bilaterally without hydronephrosis, contour deforming mass or r enal calculus. The right kidney measures 10.9 cm and left kidney measures 7.2 cm. Bladder within nor mal limits. Impression: 1: Mild left renal atrophy. Reviewed, dictated and finalized at location B. Impression: 1: Mild left renal atrophy.
[2022-12-01 13:12] LABS: Albumin Level 3.5 g/dL (3.4-5.0); Anion Gap 8 mmol/L (8-16); Blood Urea Nitrogen 17 mg/dL (7-18); Calcium 9.9 mg/dL (8.5-10.1); Carbon Dioxide 31 mmol/L (21-32); Chloride 106 mmol/L (98-108); Estimated Glomerular Filt Rate 60; Glucose 83 mg/dL (70-99); Osmolality Calculated 300 mOsm/kg (285-295); Phosphorus 2.4 mg/dL (2.6-4.7); Potassium 4.4 mmol/L (3.5-5.1); Sodium 145 mmol/L (136-145)
[2022-12-04 13:23] LABS: Anti Glomerular Basement Memb <1.0 AI (<1.0)
[2022-12-04 19:47] LABS: Alpha 1 Globulin 0.2 g/dL (0.2-0.3); Alpha 2 Globulin 0.6 g/dL (0.5-0.9); Beta 1 Globulin 0.4 g/dL (0.4-0.6); Protein, Total 6.5 g/dL (6.1-8.1)
[2022-12-05 13:04] LABS: Complement C3 99 mg/dL (82-185)
[2022-12-06 22:01] LABS: ANCA Screen Negative (Negative)
== END 2022-12-01 12:32 | disposition home or self-care (01) ==
LOC: CHSIMG 12:32
PROVIDERS: PCP Family Medicine; Visit Provider Internal Medicine Nephrology
DX: N18.31 Chronic kidney disease, stage 3a (principal); N26.1 Atrophy of kidney (terminal)
CPT/HCPCS: 36415; 76775; 80069; 83520; 84155; 84165; 86036; 86038; 86160; 86225

== ENCOUNTER 2023-05-02 09:43 | Outpatient (CLI) | payer OTHER, SELFPAY ==
[2023-05-02 11:17] LABS: Albumin Level 4.2 g/dL (3.4-5.0); Anion Gap 11 mmol/L (8-16); Blood Urea Nitrogen 24 mg/dL (7-18); Calcium 9.9 mg/dL (8.5-10.1); Carbon Dioxide 27 mmol/L (21-32); Chloride 102 mmol/L (98-108); Estimated Glomerular Filt Rate 45; Glucose 92 mg/dL (70-99); Osmolality Calculated 294 mOsm/kg (285-295); Sodium 140 mmol/L (136-145)
[2023-05-02 12:05] LABS: Creatinine Urine 412.54 mg/dL (40-278); Total Protein Urine Random 172.2 mg/dL (0.0-11.9); Ur Ttl Prot Creatinine Ratio 0.42 mg/mg (0-0.20)
[2023-05-06 06:40] LABS: Creatinine, Random Urine 381 mg/dL (20-320); Total Protein/Creatinine Ratio 438 mg/g creat (25-148)
== END 2023-05-02 09:44 | disposition home or self-care (01) ==
LOC: CHSLAB 09:44
PROVIDERS: Visit Provider Internal Medicine Nephrology
DX: N18.2 Chronic kidney disease, stage 2 (mild) (principal)
CPT/HCPCS: 36415; 80069; 82570; 84156; 84166

== ENCOUNTER 2024-02-04 19:50 | Emergency (ER) | payer OTHER, SELFPAY ==
--- NOTE | ~2024-02-04 | CT_ITS ---
CT cervical spine wo con Ordering provider: Dorian Ortega MD History: . fall AFTER SEIZURE. . Comparison: None. Technique: CT of the cervical spine was performed without contrast. Sagittal and coronal reformatted images were also obtained and reviewed. Automated exposure control and iterative reconstruction chris hnique were employed. The dose-length product was 405.81 mGy-cm. FINDINGS: VERTEBRAE: Defect seen in the anterior and posterior arch of C1 most likely chronic. . The occipital condyles are intact although slightly flattened. Kissing osteophytes seen at the level of C4-C5 anter iorly.. DISC SPACES: Normal. PARASPINOUS SOFT TISSUES: Normal. IMPRESSION: No definite acute osseous abnormality cervical spine. Defects in the anterior and posterior arch of C1 are noted most likely chronic. Clinical correlation and follow-up advised. Reviewed, dictated and finalized at location A. GRATION ENGINEER
--- NOTE | ~2024-02-04 | CT_ITS ---
CT brain wo con Ordering provider: Dorian Ortega MD History: 28 years Male with . SEIZURE, HISTORY OF SEIZURES. FALL. . Comparison: December 18, 2021 Technique: CT of the head without contrast. Radiation reduction technique utilized.The dose-length product was 983.67 mGy-cm. FINDINGS: BRAIN PARENCHYMA AND CSF SPACES: No midline shift, mass effect or hemorrhage. The brain parenchyma a nd CSF spaces are otherwise normal. VISUALIZED PARANASAL SINUSES: Well aerated. MASTOIDS: Well aerated. BONES: . Most likely old fracture of C1 with widening of the distance between the fragments anterior ly and posteriorly is seen. Clinical correlation advised. SOFT TISSUES: Visualized nasopharynx is normal. Superficial soft tissues are normal. IMPRESSION: No acute intracranial findings. Fracture of C1 most likely old with distance seen between the anterior and posterior arch fragments. Clinical correlation advised. Reviewed, dictated and finalized at location A. RIGGER IMPRESSION: No acute intracranial findings. Fracture of C1 most likely old with distance seen between the anterior and post erior arch fragments. Clinical correlation advised.
--- NOTE | ~2024-02-04 | XR_ITS ---
XR chest 2V Ordering provider: Dorian Ortega MD History: 28 years Male with . seizure . Comparison: Jul 06 2022 FINDINGS: MEDIASTINUM: The cardiac silhouette is not enlarged. LUNGS: No infiltrates, effusions or pneumothorax. OTHER: No free air under the diaphragm. Loss of height is seen in T12 anteriorly. Kyphosis is seen ce ntered at T11-T12. IMPRESSION: No acute cardiopulmonary pathology. Reviewed, dictated and finalized at location A. OWS SERVER SUPPORT TECHNICIAN
--- NOTE | 2024-02-04 19:59 | ED_ITS ---
HPI - Seizure General Chief Complaint: Seizure Stated Complaint: Seizure Activity Time Seen by Provider: 02/04/24 19:59 Source: patient and family Mode of arrival: ambulatory Limitations: no limitations History of Present Illness HPI Narrative: Patient is a 28-year-old male with known seizure disorder having 2 seizures today without definite reasoning. He did not miss his medication. He is not feeling sick. He did fall onto the stairs and hurt his head and neck. patient has neurologists but not seen for a while due to well-controlled seizure disorder. 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 ([employer]) as part of your employment, either self-employed or otherwise?: No Related Data Home Medications ?Medication ?Instructions ?Recorded ?Confirmed ?Last Taken ?Type divalproex 500 mg tablet,delayed 250 mg PO BID 01/02/19 02/04/24 01/02/19 08:00 History release 250 lacosamide 200 mg tablet (Vimpat) 200 mg PO BID 01/02/19 02/04/24 01/02/19 08:00 History 200 levetiracetam 1,000 mg tablet 2,000 mg PO USEASDIRECTD 01/02/19 02/04/24 01/02/19 08:00 History divalproex 250 mg tablet,extended 250 mg PO BID 02/04/24 02/04/24 Unknown History release 24 hr Allergies Allergy/AdvReac Type Severity Reaction Status Date / Time No Known Allergies Allergy Verified 05/03/23 14:36 Review of Systems 2 Review of Systems: All systems reviewed & are unremarkable except as noted in HPI and below Constitutional: Constitutional: Reports no additional constitutional complaints Eyes: Eyes: Reports no additional eye complaints ENT: Reports system reviewed and no additional complaints, except as documented Cardiovascular: Cardiovascular: Reports no additional cardiovascular complaints Respiratory: Respiratory: Reports no additional respiratory complaints Gastrointestinal: Gastrointestinal: Reports no additional gastrointestinal complaints Genitourinary: Genitourinary: Reports no additional male genitourinary complaints Musculoskeletal: Musculoskeletal: Reports no additional musculoskeletal complaints Integumentary/Breasts: Skin/Breast: Reports system reviewed and no additional complaints, except as docu Neurologic: Reports system reviewed and no additional complaints, except as documented Psychiatric: Psychiatric: Reports no additional psychiatric complaints Endocrine: Endocrine: Reports no additional endocrine complaints Hematologic/Lymphatic: Hematologic/Lymphatic: Reports no additional hematologic/lymphatic complaints Allergic/Immunologic: Allergic/Immunologic: Reports no additional allergic/immunologic complaints PMFSH Past Medical History Medical History Hypomagnesemia Asthma Petit mal epilepsy Family History Family History Mother Seizure Social History Social History Smoking packs per day: 1 Smoking cigarettes per day: 20.0 Years smoked: 11 Smoking pack-years: 11.00 Smoking status: Current every day smoker Tobacco type: cigarettes Second hand tobacco smoke exposure: No Alcohol intake: current Drinks per week: 5 Substance use: current Substance use type: marijuana Do You Feel Safe in your Home?: Yes Lack of Transportation: No Lack of Food: Sometimes True Current Housing: I Have Housing Concerned About Future Housing: No Difficulty Paying Gas/Electric Bills: No Difficulty Paying for Meds: No Currently Unemployed: YES Education: High School Diploma/GED Difficulty w/ Childcare or Family Care: No Living arrangements: with family Gender identity (if verbalized by the patient): Male Spiritual care concerns: No Exam 2 Const: General: healthy appearing Nutritional Appearance: well nourished Orientation/consciousness: patient oriented x3 Limitations: no limitations HENMT: Head: normal to inspection Ears: external ears normal F [place]/Nose/Sinus: Normal external nose present Eyes: Conjunctivae: conjunctivae normal Pupils: Equal, round and reactive pupils present EOM: EOMs intact bilaterally Neck: Neck: normal visual inspection Chest: Chest palpation & inspection: normal inspection of the chest Resp: Effort & Inspection: normal respiratory effort and not labored A uscultation: clear to auscultation bilaterally and no crackles Cardio: Rate: regular rate Rhythm: regular rhythm Heart sounds: no murmurs GI: Inspection: non-distended Auscultation: normal bowel sounds : General: Yes bladder normal to palpation Back/Spine/Pelvis: Back: no CVA tenderness Skin: General skin exam: normal color Rashes: no rashes Wounds: no wounds Neuro: General: patient oriented x3 Cranial nerves: Yes Nystagmus not present Speech: normal speech Gait exam (Neuro): Normal gait present O ther: Fast exam negative NIH is 0 GCS is 15 Extrem: General: normal to inspection Psych: Appearance: grossly normal Mental Status: mental status grossly normal Affect: normal affect Attitude: cooperative Course Vital Signs Vital signs: Vital Signs Temperature 37.0 C 02/04/24 20:00 Pulse Rate 66 02/04/24 20:00 Respiratory Rate 18 02/04/24 20:00 Blood Pressure 140/91 H 02/04/24 20:00 Pulse Oximetry 97 02/04/24 20:00 Oxygen Delivery Room Air 02/04/24 20:00 Temperature 37.0 C 02/04/24 20:00 Pulse Rate 84 02/04/24 21:02 Respiratory Rate 18 02/04/24 21:02 Blood Pressure 136/85 02/04/24 21:02 Pulse Oximetry 100 02/04/24 21:02 Oxygen Delivery Room Air 02/04/24 21:02 MDM - Seizure MDM Narrative Medical decision making narrative: patient is a 28-year-old male with a seizure disorder having 2 seizures today lasting about a minute each episode. We will do a workup to further evaluate breakthrough seizures. His workup shows leukocytosis which could be normal in the lieu of 2 seizures today. He will need follow-up CBC as outpatient. Further his creatinine is elevated chronically and needs outpatient follow-up. He was unable to give us urine. 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 Patient was monitored for a few hours in the emergency room no further seizures especially after IV Keppra given. Lab Data Attestation: I reviewed the patient's lab results. 02/04/24 20:21 02/04/24 20:21 Labs: Lab Results 02/04/24 02/04/24 Range/Units 20:13 20:21 WBC 26.1 H* (4.8-10.8) K/mm3 RBC 5.33 (4.70-6.10) M/mm3 Hgb 15.9 (14.0-18.0) g/dL Hct 45.9 (40.0-54.0) % MCV 86.1 (78.0-102.0) fL MCH 29.8 (27.0-31.0) pg MCHC 34.6 (32-36) g/dL RDW 12.4 (11.6-14.4) % Plt Count 277 (150-420) K/mm3 MPV 9.9 (8.7-11.0) fl Immature Gran % (Auto) Not Reportable Neut % (Auto) Not Reportable Lymph % (Auto) Not Reportable [place] % (Auto) Not Reportable Eos % (Auto) Not Reportable Baso % (Auto) Not Reportable Lymph # (Auto) Not Reportable [place] # (Auto) Not Reportable Eos # (Auto) Not Reportable Baso # (Auto) Not Reportable Abs Immat Gran (auto) Not Reportable Absolute Neuts (auto) Not Reportable Absolute Nucleated RBC Not Reportable Total Counted 100 Neutrophils % (Manual) 82 H (46-73) % Band Neutrophils % 2 (0-6) % Lymphocytes % (Manual) 11 L (18-44) % Monocytes % (Manual) 5 (3-9) % Nucleated RBC % Not Reportable Abs Neuts (Manual) 21.92 H (1.3-6.7) K/mm3 Abs Lymphs (Manual) 2.87 (1.1-4.5) K/mm3 Abs Monocytes (Manual) 1.30 H (0.1-0.90) K/mm3 Platelet Estimate Adequate (Adequate) Schistocytes None seen Sodium 141 (136-145) mmol/L Potassium 3.7 (3.5-5.1) mmol/L Chloride 104 (98-108) mmol/L Carbon Dioxide 23 (21-32) mmol/L Anion Gap 14 H (4-12) mmol/L BUN 16 (7-18) mg/dL Creatinine 1.53 H (0.70-1.30) mg/dL Estim Creat Clear Calc 64 ml/min Estimated GFR 55 L (59 - ) Glucose 105 H (70-99) mg/dL Calculated Osmolality 293 (285-295) mOsm/kg Lactic Acid 1.2 (0.4-2.0) mmol/L Calcium 10.1 (8.5-10.1) mg/dL Total Bilirubin 0.4 (0.00-1.00) mg/dL AST 19 (15-37) U/L ALT 23 (16-63) U/L Alkaline Phosphatase 69 (46-116) U/L Total Protein 7.3 (6.4-8.2) g/dL Albumin 4.1 (3.4-5.0) g/dL Ethyl Alcohol < 2 (0-6) mg/dL Influenza A (RT-PCR) Negative (Negative) Influenza B (RT-PCR) Negative (Negative) RSV (RT-PCR) Negative (Negative) SARS-CoV-2 RNA (RT-PCR) Negative (Negative) Imaging Data Attestation: I personally reviewed and interpreted this imaging study as follows: Radiologist's impression: Chest x-rays negative for acute process CT scan of the head was negative for acute process cervical spine CT scan was negative for acute process and chronic changes of C1 appreciated ECG Data EKG #1: Attestation: I personally reviewed and interpreted this ECG as follows: ECG completion date: 02/04/24 ECG completion time: 22:02 EKG Interpretation: normal rate, sinus rhythm, non-specific ST changes, normal QRS, normal QT and NL axis Discharge Plan Discharge Clinical Impression: Seizure Leukocytosis Qualifiers: Leukocytosis type: unspecified Qualified Code(s): D72.829 - Elevated white blood cell count, unspecified CRI (chronic renal insufficiency) Qualifiers: Chronic kidney disease stage: unspecified stage Qualified Code(s): N18.9 - Chronic kidney disease, unspecified Patient Disposition: Home, Self-Care Condition: Stable Instructions: Epilepsy (ED) Additional Instructions: please follow-up with primary doctor in the next week. You will need a follow- up CBC to look for wbc's. They were elevated after the seizure. You will need a creatinine recheck as well with chronic elevated values. 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 Follow-up with a neurologist in the next week or 2 to make medication changes if needed with 2 seizures after a 6-7 month period. Patient Language: Macedonian Prescriptions: No Action divalproex 250 mg tablet extended release 24 hr 250 mg PO BID divalproex 500 mg tablet,delayed release (DR/EC) 250 mg PO BID levetiracetam 1,000 mg tablet 2,000 mg PO USEASDIRECTD Rx Instructions: 2000mg am, 1000 mg pm lacosamide [Vimpat] 200 mg tablet 200 mg PO BID Follow-up/Referrals: Wai Santoyo DO [Primary Care Provider] - Time of Disposition: 21:54
[2024-02-04 20:00] VITALS: BP 140/91; PULSE 66; PULSE 85; RESP 18; TEMP 37; O2SAT 100; O2SAT 97
--- NOTE | 2024-02-04 20:00 | ECG_ITS ---
Test Date: 2024-02-04 20:12:15 Measurements Intervals [place] Rate: 74 P: 50 IA: 167 QRS: 14 QRSD: 106 T: 39 QT: 379 QTc: 423 Interpretive Statements SINUS RHYTHM POSSIBLE LEFT ATRIAL ENLARGEMENT [-0.1mV P-WAVE IN V1/V2] POSSIBLE LEFT VENTRICULAR HYPERTROPHY [VOLTAGE CRITERIA PLUS LAE OR QRS WIDENING] No previous ECG available for comparison Electronically Signed On 02-06-2024 18:28:03 [facility] [employer] by Shell Sanchez M.D.
[2024-02-04] MEDS: SODIUM CHLORIDE 0.9% IV 1,000 ML 999 ML IV CONT (20:30)
[2024-02-04] MEDS: levETIRAcetam 1000MG/NACL100ML 1,000 MG/100 ML BAG 400 MG IVPB (20:31)
[2024-02-04 20:41] LABS: Hematocrit 45.9 % (40.0-54.0); Hemoglobin 15.9 g/dL (14.0-18.0); Mean Corpuscular HGB Conc 34.6 g/dL (32-36); Mean Corpuscular Hemoglobin 29.8 pg (27.0-31.0); Mean Corpuscular Volume 86.1 fL (78.0-102.0); Mean Platelet Volume 9.9 fl (8.7-11.0); Platelet Count Result 277 K/mm3 (150-420); Red Blood Count 5.33 M/mm3 (4.70-6.10); Red Cell Distribution Width 12.4 % (11.6-14.4)
[2024-02-04 20:57] LABS: Alanine Aminotransferase 23 U/L (16-63); Albumin Level 4.1 g/dL (3.4-5.0); Alkaline Phosphatase 69 U/L (46-116); Anion Gap 14 mmol/L (4-12); Aspartate Amino Transferase 19 U/L (15-37); Bilirubin,Total 0.4 mg/dL (0.00-1.00); Blood Urea Nitrogen 16 mg/dL (7-18); Calcium 10.1 mg/dL (8.5-10.1); Carbon Dioxide 23 mmol/L (21-32); Chloride 104 mmol/L (98-108); Estimated CRCL calculation 64 ml/min; Estimated Glomerular Filt Rate 55; Glucose 105 mg/dL (70-99); Osmolality Calculated 293 mOsm/kg (285-295); Potassium 3.7 mmol/L (3.5-5.1); Sodium 141 mmol/L (136-145); Total Protein 7.3 g/dL (6.4-8.2); White Blood Count 26.1 K/mm3 (4.8-10.8)
[2024-02-04 20:59] LABS: Ethanol < 2 mg/dL (0-6)
[2024-02-04 21:02] VITALS: BP 136/85; PULSE 84; RESP 18; O2SAT 100
[2024-02-04 21:12] LABS: Band Neutrophils Percent 2 % (0-6); Lymphocytes Absolute Manual 2.87 K/mm3 (1.1-4.5); Lymphocytes Percent Manual 11 % (18-44); Monocytes Percent Manual 5 % (3-9); Neutrophils Absolute Manual 21.92 K/mm3 (1.3-6.7); Neutrophils Percent Manual 82 % (46-73); Platelet Estimate Adequate (Adequate); Schistocytes None Seen; Total Cells Counted 100
[2024-02-04 21:16] LABS: SARS-CoV-2 RNA PCR Negative (Negative)
[2024-02-04 21:17] LABS: Influenza A QL RT-PCR Negative (Negative); Influenza B QL RT-PCR Negative (Negative); RSV RNA, RT-PCR Negative (Negative)
[2024-02-04 21:19] LABS: Lactic Acid Reflex 1.2 mmol/L (0.4-2.0)
[2024-02-04 22:07] VITALS: BP 132/82; PULSE 82; RESP 20; TEMP 36.7; O2SAT 99
== END 2024-02-04 22:07 | disposition home or self-care (01) ==
PROVIDERS: Emergency Provider Emergency Medicine; PCP Family Medicine
DX: G40.909 Epilepsy, unspecified, not intractable, without status epilepticus (principal); D72.829 Elevated white blood cell count, unspecified; N18.9 Chronic kidney disease, unspecified; M54.2 Cervicalgia; R51.9 Headache, unspecified; W10.9XXA Fall (on) (from) unspecified stairs and steps, initial encounter; F17.210 Nicotine dependence, cigarettes, uncomplicated; F12.90 Cannabis use, unspecified, uncomplicated; Z20.822 Contact with and (suspected) exposure to COVID-19
CPT/HCPCS: 36415; 70450; 71046; 72125; 80053; 82077; 83605; 85025; 87637; 93005; 96374; 99284; J1953; J7030